=== PATIENT | female | born 1960 | race Caucasian/White ===

== ENCOUNTER → 2016-10-24 | Outpatient (CLI) | payer OTHER ==
[2016-10-24 11:41] LABS: HEMOGLOBIN 14.7 gm/dl (12.3-15.3); RED BLOOD COUNT 4.98 M/UL (4.00-5.10); WHITE BLOOD COUNT 8.9 K/UL (4.5-11.0)
== END ==
LOC: LAB 10:41
PROVIDERS: Nurse Practitioner Family
DX: L50.0 Allergic urticaria (principal)
CPT/HCPCS: 82306; 82784; 82785; 84439; 84443; 84480; 85025; 86162